=== PATIENT | female | born 1985 | race Caucasian/White ===

== ENCOUNTER 2016-07-23 20:20 | Outpatient (CLI) | payer MEDICAID, OTHER ==
[2016-07-23 21:10] LABS: URINE BILIRUBIN NEGATIVE (NEGATIVE); URINE BLOOD NEGATIVE (NEGATIVE); URINE GLUCOSE (UA) NEGATIVE (NEGATIVE); URINE LEUKOCYTE ESTERASE TRACE (NEGATIVE); URINE NITRITE NEGATIVE (NEGATIVE); URINE PROTEIN NEGATIVE (NEGATIVE); URINE UROBILINOGEN NORMAL (0-1 mg/dl)
[2016-07-23 21:11] VITALS: BMI 27.0
[2016-07-23 21:14] LABS: URINE APPEARANCE SL CLOUDY; URINE COLOR YELLOW
[2016-07-23 21:34] LABS: AMPHETAMINES/METHAMPHETAMINES NEGATIVE (NEGATIVE); COCAINE NEGATIVE (NEGATIVE); METHADONE NEGATIVE (NEGATIVE)
[2016-07-23 21:35] LABS: MARIJUANA POSITIVE (NEGATIVE); OPIATES POSITIVE (NEGATIVE); TRICYCLIC ANTIDEPRESSANTS NEGATIVE (NEGATIVE)
[2016-07-23 21:43] LABS: URINE BACTERIA 1+; URINE RBC 0 /hpf
[2016-07-23] MEDS ORDERED: ACETAMINOPHEN 500 MG TABLET PO ONE (22:20)
[2016-07-23] MEDS ORDERED: CALCIUM CARBONATE 500 MG TAB.CHEW PO ONE (22:20)
--- NOTE | 2016-07-24 07:36 | HP ---
Jerad Levy : 1985 HISTORY OF PRESENT ILLNESS: This is a 30-year-old female with a questionable last menstrual period of 02/04/2016. She is currently 25 weeks gestation. A patient of Dr. Chilel from [facility]. She presented to [facility] with complaints of bilateral groin ache, pain in the lower abdomen and upper abdomen, which she said was above the uterus. The baby has been active and she was just came in as a walk in patient for evaluation. At the time that I arrived she said the pain had subsided significantly and she was feeling better. OB HISTORY: 13, para 4-2-2-9-3, two deliveries one at 24 weeks with a demise and one at 35 weeks weighing 6 pounds 7 ounces, another one at 35 weeks, and another one at 40 weeks, and 9 spontaneous abortions. MDM SR HISTORY: Menarche 10 x20 x3 to 2. Sexually transmitted diseases were negative. PAST MEDICAL HISTORY: Includes asthma, bipolar disorder, history of blood transfusions, headaches, history of urinary tract infection, hypertension which she said happened around the , but not during the , renal stones, premature labor. She also has a history of amphetamine use and urinary tract infection and seizures. She also admits to anxiety, fibromyalgia, scoliosis. MEDICATIONS: Include Klonopin and she has been taking opiates. PAST SURGICAL HISTORY: Blood transfusion, history of tonsils and adenoids. SOCIAL HISTORY: Smokes a pack a day. Also admits to marijuana use. No alcohol use. FAMILY HISTORY: Positive for hypertension, cancer, heart disease, seizure disorder. REVIEW OF SYSTEMS: Which is stated above. PHYSICAL EXAMINATION: GENERAL: Is a healthy appearing female in no acute distress. HEENT: Normal. LUNGS: Clear. HEART: Regular sinus rhythm. BREAST: Deferred. ABDOMEN: Mildly distended, nontender. Uterine fundus about 24 weeks size. heart present with a category 1 tracing on the external monitor. CVA tenderness was not elicited. PELVIC: The cervix is closed. Presenting part is -4 and no cervical effacement. IMPRESSION: Round ligament syndrome. No apparent premature onset of labor. PLAN: We will do a ultrasound and if normal then patient may be discharged. Her urinalysis showed no blood in the urine and minimal white cells. She was advised follow up with her doctor in the morning for routine care and advised hydration at home. JOB: [id number]
--- NOTE | 2016-07-24 07:56 | US ---
Exam: Obstetric ultrasound followup Comparison: None Indication: Pain, nausea, headache for 3 days. Check for placental integrity/separation/ measurements. Findings: Limited emergent obstetric ultrasound was obtained. Real-time sonographic imaging demonstrated a single live intrauterine in transverse presentation with an anterior placenta without evidence of previa. There are no retroplacental collections to suggest abruption. KRISTOPHER measures 21.8 cm. Measurements of the fetus are as follows: BPD: 6.2 cm, 25 weeks 1 day HC: 23.7 cm, 25 weeks 5 days AC: 21.5 cm, 26 weeks 0 days FL: 4.8 cm, 26 weeks 0 days Biometric ratios are normal except for the FL/HC ratio is 20.2 (normal is 19.0-20.1). This combines for a mean gestational age by ultrasound of 25 weeks 5 days with a sonographic MADHU of 10/31/2016. This is within 6 days of clinical dating. Estimated weight is at the 70th percentile based on clinical data. anatomic survey was not performed. Heart rate was 157beats per minute. Impression: 1. Single live intrauterine in transverse presentation with a heart rate of 157 bpm. 2. Anteriorly located placenta without evidence of previa or abruption. 3. KRISTOPHER 21.8 cm. 4. Mean gestational age of 25 weeks 5 days and a sonographic MADHU of 10/31/2016 is within 6 days of clinical dating. 5. Estimated weight is at the 70th percentile based on clinical dating. Preliminary report transmitted to the [facility] from [facility] at 0001 hours 07/24/2016.
== END 2016-07-24 01:05 | disposition home or self-care (01) ==
LOC: FBC 20:20 → FBCOUT 20:20
PROVIDERS: ATTEND Obstetrics & Gynecology
DX: O26.892 Other specified pregnancy related conditions, second trimester (principal); R10.9 Unspecified abdominal pain; R51 Headache; O99.332 Smoking (tobacco) complicating pregnancy, second trimester; F17.210 Nicotine dependence, cigarettes, uncomplicated; O99.322 Drug use complicating pregnancy, second trimester; F12.90 Cannabis use, unspecified, uncomplicated; F31.9 Bipolar disorder, unspecified; O99.342 Other mental disorders complicating pregnancy, second trimester; O99.512 Diseases of the respiratory system complicating pregnancy, second trimester; J45.909 Unspecified asthma, uncomplicated; Z3A.25 25 weeks gestation of pregnancy
CPT/HCPCS: 80305; 81001; 76816; 59050; 94760; A9270 ×2; G0463